=== PATIENT | male | born 1945 | race Caucasian/White ===

== ENCOUNTER 2017-09-13 12:03 | Emergency (ER) | payer MEDICARE, OTHER ==
[~2017-09-13] VITALS: Ht 193 cm; Wt 105.0 kg
[2017-09-13 12:07] VITALS: TEMP 97.9
[2017-09-13] MEDS ORDERED: PERCOCET 325 MG1 TA3 PO (13:38)
[2017-09-13] MEDS ORDERED: VOLTAREN 75 DR75 MG PO (13:39)
[2017-09-13] MEDS ORDERED: VITAMIN B COMPL1 SGL PO (13:40)
[2017-09-13] MEDS ORDERED: NORCO 325 MG-101 TAB PO (13:41)
[2017-09-13 14:30] VITALS: BP 110/67; PULSE 70
== END 2017-09-13 14:30 | disposition home or self-care (01) ==
LOC: COL.ER 12:03
DX: R20.2 Paresthesia of skin (principal); M48.00 Spinal stenosis, site unspecified; M79.602 Pain in left arm; M79.601 Pain in right arm; Z88.5 Allergy status to narcotic agent

== ENCOUNTER 2022-12-03 13:04 | Observation (INO) | payer MEDICARE, OTHER ==
[~2022-12-03] VITALS: Ht 195.6 cm; Wt 112.4 kg
[~2022-12-03 13:04] MED LIST: NORCO 325 MG-101 TAB PO; PERCOCET 325 MG1 TA3 PO; VITAMIN B COMPL1 SGL PO; VOLTAREN 75 DR75 MG PO
--- NOTE | 2022-12-03 14:20 | NUR ---
pt admitted to room, dr mooney notified. admission assessment complete. vss. pt a&ox4, at bedside. pt rates pain a 2/10 in the abdomen. INT to right ac. call light in reach. no needs at this time.
[2022-12-03] MEDS ORDERED: NAPROSYN500 MG PO (14:32)
[2022-12-03] MEDS ORDERED: ASPIRIN 81M81 MG/TA2 PO (14:32)
[2022-12-03] MEDS ORDERED: LASIX 40MG TABL40 MG PO (14:33)
[2022-12-03] MEDS ORDERED: MULTIPLE VITAMI1 CAP PO (14:33)
[2022-12-03] MEDS ORDERED: NEURONTIN600 MG/TAB PO (14:34)
[2022-12-03] MEDS ORDERED: MELATONIN ER10 MG PO (14:34)
[2022-12-03] MEDS ORDERED: FLEXERIL 1010 MG/TAB PO (14:35)
[2022-12-03 14:53] VITALS: BP 132/66; PULSE 90; TEMP 97.9
[2022-12-03 17:05] VITALS: BP_SYST 132
[2022-12-03 19:43] VITALS: BP 120/66; PULSE 93; TEMP 99.3
--- NOTE | 2022-12-03 20:40 | NUR ---
Called Dr. Lovett d/t patient wanted his HS pills tonight, received an order to resumed his flexeril, melatonin and gabapentin with the same dose and timing from his home meds.
--- NOTE | 2022-12-03 21:21 | NUR ---
Patient assessed around this time, see shift assessment, IV infusing well on right AC, NS at 75cc/hr, denies N/V, reports pain at 2/10, denies further needs, plan of care discussed for this shift to include pain, meds/ calling for questions or concerns.
[2022-12-03 23:18] VITALS: BP 115/60; PULSE 87; TEMP 100.2
[2022-12-04] VITALS (9 sets, daily range): BP systolic 115–144; BP diastolic 56–73; PULSE 82–94; TEMP 98.1–99.5
[2022-12-04 05:51] LABS: HEMOGLOBIN 11.8 g/dl (13.5-18.0); MEAN CELL VOLUME 87 fl (80.0-100.0); MEAN CORPUSCULAR HEMOGLOBIN 31 pg (27-31); MEAN CORPUSCULAR HGB CONC 36 g/dl (33.0-37.0); MEAN PLATELET VOLUME 8.8 fl (7.4-10.4); PLATELET COUNT 436 K/mm3 (130-400); RED BLOOD COUNT 3.76 M/mm3 (4.20-5.60); REDCELL DISTRIBUTION WIDTH-CV 14.3 % (11.5-14.5)
[2022-12-04 05:59] LABS: HEMATOCRIT 32.8 % (42.0-52.0)
[2022-12-04 06:06] LABS: CALCIUM 8.5 mg/dL (8.4-10.2); CREATININE, serum 0.99 mg/dL (0.72-1.25); POTASSIUM 3.7 mmol/L (3.5-4.5)
--- NOTE | 2022-12-04 06:24 | NUR ---
CALLED Dr. Lovett and made him aware about patient's WBC which is critically high, no new orders received at this time.
--- NOTE | 2022-12-04 08:43 | NUR ---
PT RESTING IN BED. IV TO RFA. PT DENIES NEEDS. IV ABX RUNNING ORDERED. PT EATING AND DRINKING WITH NO N/V. PT INDEPENDENT IN AND OUT OF ROOM. PAIN WELL CONTROLLED AT THIS TIME. PT REMAINS AFEBRILE. CAREPLAN REVIEWED WITH PT.
--- NOTE | 2022-12-04 11:24 | NUR ---
[facility] worker met with patient to discuss discharge planning. Patient confirmed he lives in [place] with his , Myrtle, P# [phone]. Patient's primary care physician is Dr. Huerta at [facility] and his preferred pharmacy is [facility]. Patient denied any difficulties with being able to afford his medications. Patient expressed he has a living will and a DPOA-HC. Patient expressed Lashaun Loco (sister in law) is appointed his agent on his POA but he is uncertain if his is on there. Patient has a cane, walker, wheelchair ramp and guards around the toilet at home. Patient reports he has a CPAP but he cannot use it as it bothers him too much to sleep. Patient reports prior to hospitalization he was independent with ADLS. Patient expressed his does not drive anymore but his son would be able to come transport him home when ready for discharge. Discharge Plan: Home
--- NOTE | 2022-12-04 11:54 | NUR ---
Waiter/[employer]ress [employer] rounds: Waiter/Waitress Third [employer] and Patient spoke about his ruptured appendix and football. Waiter/Waitress Third Class provided supportive listening and prayer and a newspaper.
--- NOTE | 2022-12-04 22:11 | NUR ---
Patient A/O, remains on IV fluids, denies pain,N/V, denies further need at this time, call light and personal items within reach.
[2022-12-05] VITALS (10 sets, daily range): BP systolic 114–151; BP diastolic 55–82; PULSE 65–84; TEMP 97.9–99.5
--- NOTE | 2022-12-05 02:45 | NUR ---
Up to the bathroom and voided without any difficulty, denies pain at this time.
[2022-12-05 05:35] LABS: HEMOGLOBIN 11.8 g/dl (13.5-18.0); MEAN CELL VOLUME 89 fl (80.0-100.0); MEAN CORPUSCULAR HEMOGLOBIN 31 pg (27-31); MEAN CORPUSCULAR HGB CONC 35 g/dl (33.0-37.0); MEAN PLATELET VOLUME 8.9 fl (7.4-10.4); PLATELET COUNT 472 K/mm3 (130-400); RED BLOOD COUNT 3.76 M/mm3 (4.20-5.60); REDCELL DISTRIBUTION WIDTH-CV 14.4 % (11.5-14.5)
[2022-12-05 05:42] LABS: HEMATOCRIT 33.3 % (42.0-52.0)
[2022-12-05 05:54] LABS: C-REACTIVE PROTEIN 16.32 mg/dL (0.00-0.50); CALCIUM 8.3 mg/dL (8.4-10.2); CREATININE, serum 0.88 mg/dL (0.72-1.25); POTASSIUM 3.7 mmol/L (3.5-4.5)
[2022-12-05 06:53] LABS: BAND 6 % (0-10); EOSINOPHIL 3 % (0-4); LYMPHOCYTE 25 % (20.0-51.0); NEUTROPHILS 58 % (42.0-75.2)
[2022-12-05 06:54] LABS: PLATELET ESTIMATE INCREASED (NORMAL)
--- NOTE | 2022-12-05 09:08 | NUR ---
PT INDEPENDENT IN ROOM AND HALLS. PT DENIES PAIN OR NEEDS AT THIS TIME. EATING AND DRINKING NO NAUSEA OR VOMITING. PLAN ON DISCHARGE MON OR .
[2022-12-05] MEDS ORDERED: AMOXICILLIN 8751 TAB PO (09:29)
--- NOTE | 2022-12-05 20:52 | NUR ---
Patient sitting up in a recliner watching TV with no c/o pain at this time, IV infusing well on right forearm, denies N/V, provided denture cleanser for his dentures and put in a denture cup, denies further need at this time, call light and personal item within reach, will continue to monitor.
--- NOTE | 2022-12-06 02:37 | NUR ---
Patient up to the bathroom with SBA assist, voided without any difficulty.
[2022-12-06 04:02] VITALS: BP 135/74; PULSE 80; TEMP 98.2
--- NOTE | 2022-12-06 07:12 | NUR ---
Shift report received from the night nurse, JUNO Alan.
[2022-12-06 07:48] VITALS: BP 118/75; PULSE 79; TEMP 98.1
[2022-12-06 08:30] LABS: HEMOGLOBIN 12.4 g/dl (13.5-18.0); MEAN CELL VOLUME 90 fl (80.0-100.0); MEAN CORPUSCULAR HEMOGLOBIN 31 pg (27-31); MEAN CORPUSCULAR HGB CONC 34 g/dl (33.0-37.0); MEAN PLATELET VOLUME 8.8 fl (7.4-10.4); PLATELET COUNT 476 K/mm3 (130-400); REDCELL DISTRIBUTION WIDTH-CV 14.6 % (11.5-14.5)
[2022-12-06 08:33] LABS: HEMATOCRIT 36.1 % (42.0-52.0)
[2022-12-06 09:00] VITALS: BP_SYST 118
--- NOTE | 2022-12-06 10:04 | NUR ---
Patient sitting up in a recliner by the bed side watching TV. Patient alert and oriented, IVF infusing without difficulty. Patient denies pain , n/v at this time and voice that he is doing okay. Call light in reach.
[2022-12-06 11:33] VITALS: BP 123/63; PULSE 74; TEMP 97.4
[2022-12-06 13:00] VITALS: BP_SYST 123
[2022-12-06 16:00] VITALS: BP 134/69; PULSE 74; TEMP 97.8
--- NOTE | 2022-12-06 16:52 | NUR ---
Discharge instruction given to patient and has no questions, or concern. INT discontinued. Patient states his escort will be here in 30 minutes to transport home.
--- NOTE | 2022-12-06 18:59 | NUR ---
PATIENT DISCHARGED HOME AT 1800 AND WAS ESCORTED TO THE PATIENT ENTRANCE.
== END 2022-12-06 18:00 | disposition home or self-care (01) ==
LOC: SURG 13:04
PROVIDERS: ADMIT Surgery
DX: K35.32 Acute appendicitis with perforation, localized peritonitis, and gangrene, without abscess (principal)
CPT/HCPCS: G0378; G0379; J2543; J7030